=== PATIENT | female | born 1985 | race Caucasian/White ===

== ENCOUNTER 2018-05-05 07:42 | Outpatient (CLI) | payer OTHER | END 2018-05-05 09:24 | disposition still patient (30) | LOC: OBS/DEL 07:42 | DX: O47.1 False labor at or after 37 completed weeks of gestation (principal); Z34.03 Encounter for supervision of normal first pregnancy, third trimester ==

== ENCOUNTER 2018-05-05 09:23 | Inpatient (IN) | payer OTHER ==
[~2018-05-05] VITALS: Ht 172.7 cm; Wt 68.0 kg
== END 2018-05-07 15:57 | disposition home or self-care (01) | DRG 807 ==
LOC: OB/GYN → LDR 09:23 → OB/GYN 16:34
PROVIDERS: ADMIT Obstetrics & Gynecology
PROC: 10E0XZZ Delivery of Products of Conception, External Approach (ICD-10-PCS; principal; 2018-05-05)
PROC: 0W8NXZZ Division of Female Perineum, External Approach (ICD-10-PCS; 2018-05-05)
PROC: 4A1HXCZ Monitoring of Products of Conception, Cardiac Rate, External Approach (ICD-10-PCS; 2018-05-05)
DX: O80 Encounter for full-term uncomplicated delivery (principal); Z37.0 Single live birth; Z3A.39 39 weeks gestation of pregnancy

== ENCOUNTER 2021-05-14 05:02 | Inpatient (IN) | payer OTHER ==
[~2021-05-14] VITALS: Ht 172.7 cm; Wt 67.1 kg
[2021-05-14] MEDS ORDERED: PRENATAL CAPLE1 EAC1 PO (05:47)
[2021-05-14] MEDS ORDERED: IRON236 MG PO (05:48)
== END 2021-05-17 12:50 | disposition home or self-care (01) | DRG 788 ==
LOC: SURG-SUITE 05:02 → LDR 05:02 → O/R 10:46 → SURG-SUITE 11:13 → OB/GYN 05-29 13:34
PROVIDERS: ADMIT Obstetrics & Gynecology; ATTEND Obstetrics & Gynecology
PROC: 4A1HXCZ Monitoring of Products of Conception, Cardiac Rate, External Approach (ICD-10-PCS; 2021-05-14)
PROC: 10D00Z1 Extraction of Products of Conception, Low, Open Approach (ICD-10-PCS; principal; 2021-05-14 10:00)
DX: O36.8130 Decreased fetal movements, third trimester, not applicable or unspecified (principal); Z3A.37 37 weeks gestation of pregnancy; Z37.0 Single live birth; Z20.822 Contact with and (suspected) exposure to COVID-19